=== PATIENT | male | born 1970 | race African-American/Black ===

== ENCOUNTER 2022-04-29 01:20 | Observation (INO) ==
[2022-04-29] MEDS ORDERED: ONDANSETRON 4 MG/2 ML VIAL IV PRN (03:53)
[2022-04-29] MEDS ORDERED: hydrALAZINE 20 MG/1 ML VIAL IV PRN (03:53)
[2022-04-29] MEDS ORDERED: MORPHINE 2 MG/1 ML SYRINGE IV PRN (03:53)
[2022-04-29] MEDS ORDERED: ACETAMINOPHEN 325 MG TABLET PO PRN (03:53)
[2022-04-29] MEDS ORDERED: HEPARIN DRIP 25,000 UNITS/500 ML PREMIX IV SCH (04:00)
[2022-04-29] MEDS ORDERED: ALBUTEROL 2.5 MG/3 ML NEB RESP TX PRN (04:45)
[2022-04-29 04:51] LABS: Basophils # 0.1 10*3/uL (0.0-0.2); Basophils % 1.1 % (0.0-0.8); Eosinophils # 0.8 10*3/uL (0.0-0.87); Hemoglobin 13.3 GM/DL (14.0-18.0); Immature Granulocytes % 0.4 %; Immature Granulocytes Absolute 0.04 #; Lymphocytes # 1.6 10*3/uL (1.4-4.0); Lymphocytes % 14.6 % (21.2-54.2); Mean Corpuscular HGB Conc 30.9 GM/DL (32-36); Mean Corpuscular Volume 86.9 FL (87-102); Mean Platelet Volume 9.5 FL (9.6-12.0); Monocytes # 0.9 10*3/uL (0.11-0.8); Neutrophils % 68.9 % (38.7-73.9); Platelet Count 302 T/CUMM (130-400); Red Blood Count 4.95 MC/CUMM (3.8-5.5); Red Cell Distribution Width 16.3 % (9.3-17.3); White Blood Count 10.8 T/CUMM (4-12)
[2022-04-29 05:04] LABS: PT Patient Result 11.1 SECS (10.1-12.1); Partial Thromboplastin Time 31.1 SECS (23.7-32.9)
[2022-04-29 05:09] LABS: Albumin 4.1 G/DL (3.4-5.0); Bilirubin,Total 0.7 MG/DL (0.20-1.00); Calcium 9.4 MG/DL (8.5-10.1); Osmolality,Calculated 282.4 MOS/KG (273-304); Potassium 4.9 MMOL/L (3.5-5.1)
[2022-04-29] MEDS ORDERED: PANTOPRAZOLE 40 MG TABLET PO SCH (09:00)
[2022-04-29] MEDS ORDERED: LISINOPRIL/HCTZ 10-12.5 MG TABLET PO SCH (09:00)
[2022-04-29] MEDS ORDERED: ISOSORBIDE DINITRATE 20 MG TABLET PO SCH (09:00)
[2022-04-29] MEDS ORDERED: hydrALAZINE 10 MG TABLET PO SCH (09:00)
[2022-04-29] MEDS ORDERED: GABAPENTIN 100 MG CAPSULE PO SCH (09:00)
[2022-04-29 11:17] VITALS: BP 102/66
== END 2022-04-29 12:45 | disposition left against medical advice (07) ==
LOC: N.ED 01:20 → N.EDINP 01:20 → N.3E 04:11
PROVIDERS: ADMIT Internal Medicine; ATTEND Internal Medicine